=== PATIENT | female | born 1970 | race Hispanic/Latino ===

== ENCOUNTER 2016-03-26 21:21 | Emergency (ER) | payer SELFPAY ==
[~2016-03-26] VITALS: Ht 154.9 cm; Wt 48.6 kg
[2016-03-26 21:26] VITALS: BP 108/69; PULSE 74; RESP 16; O2SAT 100
--- NOTE | 2016-03-26 22:44 | ED.REPORT ---
HPI-Extremity Problem Upper Date of Service Mar 26, 2016 ED Provider: MD Steven This is a 45 year old female presenting to the emergency department complaining of left hand pain that began just prior to arrival due to ground level fall. Pt states she tripped and fell landing on her left hand. Reports "throbbing" pain with movement, denies numbness or tingling in extremities. Denies radiation of pain up the arm or any other injuries at this time. Nursing Notes Stated Complaint: FALL Chief Complaint: Extremity Trauma Nursing Notes Reviewed: Yes Allergies: Coded Allergies: No Known Allergies (Unverified , 03/26/16) Scheduled PRN Ibuprofen (Ibuprofen) 600 Mg Tablet 600 MG PO QID PRN PRN For Pain General Time Seen by MD: 22:44 Chief Complaint Hand Injury left Hx Obtained From: Patient Arrived By: Walk-in Onset Occurred: Just prior to arrival Symptom Duration: Since onset Severity: Current: Mild Pertinent Negative: Pt denies other symptoms Recent Healthcare: No recent doctor visit, No recent hospitalization Similar Sx Previous: No Past Medical History Past Medical History Denies Past Surgical History Denies Ambulatory Status Independent Review of Systems Constitutional: Denies: Chills, Fever Musculoskeletal: Reports: Extremity pain, Denies: Back pain, Extremity swelling, Neck pain Neurologic: Denies: Change LOC, Headache, Numbness Complete sys rev & neg: except as marked. Physical Exam Initial Vital Signs Vital Signs (First) Date Time Temp Pulse Resp B/P Pulse Ox O2 Delivery O2 Flow Rate FiO2 03/26/16 21:26 36.8 74 16 108/69 100 Room Air Initial VS: Reviewed General/Constitutional: Well-developed, Well-nourished Head / Eyes: Atraumatic, Normocephalic, PERRL ENT: Mucous membranes moist, Conjunctiva normal, No scleral icterus Neck: Supple, Non-tender, Full range of motion Respiratory: No respiratory distress Lower Extremities: Vascular intact, Neuro intact, No swelling, No tenderness Skin: Warm, Dry, No cyanosis Neurologic: Alert, Oriented, Nonfocal Psychiatric: Mood/affect normal, Behavior normal, Normal thought content Wrist / Hand: Inspection NL, Full range of motion, No erythema, Non-tender, No deformity, Neurologic intact, Vascular intact, No compartment syndrome, No clubbing/cyanosis Interpretation & Diagnostics X-Ray Interpretation Xray Interpretation: L hand Interpretation / Wet Read by: Wet read ED physician Interpretation: Normal exam Re-Eval/Medical Decision Med Decision/Clinical Course 45-year-old who suffered ground-level fall and then outstretched hand and has pain in the palmar surface of the hand characterized as throbbing. X-rays negative. Exam of the hand shows no visible bruising or edema, intact sensation and vascularity and tendons, and the wrist is likewise negative to palpation and movement. She is placed in a cockup splints with light Major wrap over to immobilize the fingers and instructed to wear this for a couple days, as long as than is tender. Elevation, ibuprofen, and follow up with PCP. Counseled Regarding: Diagnosis, Lab results, Need for follow-up, When/why to return to ED Discharge & Departure Impression: Primary Impression: Sprain of hand Encounter type: initial encounter Laterality: left Qualified Code: S63.92XA - Sprain of unspecified part of left wrist and hand, initial encounter Disposition: Home Discharge Condition All VS Reviewed: Yes Condition: Stable Patient Instructions: Hand Sprain (ED) Additional Instructions: Elevate whenever possible to reduce swelling and reduce throbbing. Ibuprofen as needed for pain, four times daily. Wear the splint as long as there is discomfort, for 2-5 days typically. Follow-up with your doctor in the office. Return for any immediate issues, such as immobility, numbness, tingling. Referrals: Scot Knapp ND (PCP) Scribe Attestation Portions of this note were transcribed by Uriel Garcia. I, Dr. Harris personally performed the history, physical exam and medical decision-making; I reviewed and confirmed the accuracy of the information in the transcribed note. Signed by: marlyn Elise. 03/26/2016, 23:00. Troy Harris MD Mar 26, 2016 22:44 URIEL GARCIA Mar 26, 2016 22:50
[2016-03-26] MEDS ORDERED: IBUP-1827 PO (22:50)
--- NOTE | 2016-03-27 08:20 | DRSVH ---
PROCEDURE: X-RAY LEFT HAND, MINIMUM THREE VIEWS ([id number]) INDICATIONS: pain post fall onto hand TECHNIQUE: 3 views of the hand(s) acquired. COMPARISON: None. FINDINGS: Bones: No fractures or dislocations. Carpal bones are normally aligned. No suspicious bony lesions . Soft tissues: No suspicious soft tissue calcifications. IMPRESSION: No displaced fracture seen. If there is continued pain, followup exam or additional tiffanie ging such as MRI or CT could be performed for further assessment. Dictated by: Darell Go RRA Interpreted: Yoly Buenrostro MD on 03/27/2016 at 8:19 Transcribed by: CARLOS ENRIQUE on 03/27/2016 at 8:20 Approved by: Yoly Buenrostro M.D. on 03/27/2016 at 9:00
== END 2016-03-26 23:06 | disposition home or self-care (01) ==
LOC: SED 21:21
DX: S63.92XA Sprain of unspecified part of left wrist and hand, initial encounter (principal); W01.0XXA Fall on same level from slipping, tripping and stumbling without subsequent striking against object, initial encounter; Y93.89 Activity, other specified; Y92.009 Unspecified place in unspecified non-institutional (private) residence as the place of occurrence of the external cause; Y99.8 Other external cause status